=== PATIENT | male | born 1955 | race Two or more races ===

== ENCOUNTER 2024-07-02 08:26 | Outpatient (CLI) | payer MEDICARE, MEDICAID ==
--- NOTE | 2024-07-02 15:19 | RADIOLOGY REPORT ---
Procedure: CT CT CHEST Reason for study/Clinical History: OTHER SPECIFIED INTERSTITIAL PULMONARY DISEASES Comparison Study: NoneNone available at time of dictation. Exam Date: 07/02/2024 09:20 AM TECHNIQUE: Multidetector CT of the chest was performed from the lung apices to the upper abdomen with out the use of intravenous contract. Axial, coronal and sagittal multiplanar reformats were performed . Radiation Dose Information: CT Dose: CTDI volume is 3.04 mGy. Dose-length product is 90.84 mGy*cm The dose indicators for CT are the volume Computed Tomography (CT) Dose Index (CTDIvol) and the Dose Length Product (DLP), and are measured in units of mGy and mGy-cm, respectively. These indicators are not patient dose, but values generated from the CT scanner acquisition factors. The report includes radiation exposure data for exposures received during this examination. FINDINGS: Lower neck: Normal thyroid. Lungs: No focal consolidation, pleural effusion or pneumothorax. Heart/Vascular Structures: Normal heart size. No pericardial effusion. Scattered coronary artery calc ification Lymph Nodes: No adenopathy Pleura: No pleural effusion or significant pneumothorax. Musculoskeletal: No acute osseous abnormality. Soft tissues: Normal. Upper abdomen: Limited portions of the upper abdomen are unremarkable. IMPRESSION: 1. Pulmonary nodule for masses 2. Scattered coronary artery calcifications Radiation optimization: All CT scans at this facility use at least one of these dose optimization bethanie hniques: automated exposure control mA and/or kV adjustment per patient size (includes targeted exam s where dose is matched to clinical indication) or iterative reconstruction.
== END 2024-07-02 23:59 | disposition home or self-care (01) ==
LOC: RAD 08:26
PROVIDERS: ATTEND Physician Assistant
DX: R91.1 Solitary pulmonary nodule (principal); J84.89 Other specified interstitial pulmonary diseases; I25.10 Atherosclerotic heart disease of native coronary artery without angina pectoris
CPT/HCPCS: 71250